=== PATIENT | female | born 1975 | race Caucasian/White ===

== ENCOUNTER 2017-02-22 20:08 | Emergency (ER) | payer OTHER ==
[2017-02-22] MEDS ORDERED: ONDANSETRON (ODT) 4 MG TAB ODT (20:42)
[2017-02-22] MEDS ORDERED: HYDROCODONE/APAP (5/325) TAB PO (21:00)
[2017-02-22 21:47] LABS: URINE BLOOD (Dip) POC Trace-intact (NEGATIVE); URINE GLUCOSE (Dip) POC Negative (NEGATIVE); URINE KETONES (Dip) POC Negative (NEGATIVE); URINE LEUKOCYTE EST (Dip) POC Negative (NEGATIVE); URINE NITRITE (Dip) POC Negative (NEGATIVE); URINE TOTAL PROTEIN POC Negative (NEGATIVE)
[2017-02-22] MEDS ORDERED: KETOROLAC 30 MG INJ IV (21:59)
== END 2017-02-22 23:19 | disposition left against medical advice (07) ==
LOC: FTE 23:19
DX: R51 Headache (principal)
CPT/HCPCS: 76705; 81003; 99284-25